=== PATIENT | male | born 1950 | race Caucasian/White ===

== ENCOUNTER 2017-10-07 13:25 | Emergency (ER) | payer SELFPAY, OTHER | END 2017-10-07 17:10 | disposition left against medical advice (07) | LOC: E/R 17:10 | DX: Z53.21 Procedure and treatment not carried out due to patient leaving prior to being seen by health care provider (principal) | CPT/HCPCS: 93005 ==

== ENCOUNTER 2018-01-13 09:45 | Emergency (ER) | payer OTHER, BC, MEDICARE | END 2018-01-13 11:43 | disposition home or self-care (01) | LOC: FTE 09:45 | DX: M25.521 Pain in right elbow (principal); Z47.89 Encounter for other orthopedic aftercare | CPT/HCPCS: 29105; 99283-25 ==

== ENCOUNTER 2018-05-10 19:58 | Emergency (ER) | payer OTHER, BC ==
[2018-05-10] MEDS: LIDOCAINE 2%/EPI MPF (SDV) 20 ML VIAL INJ (20:23)
[2018-05-10] MEDS: DIPHTH/TET/ACEL PERTUSS (ADULT) 0.5 ML VIAL IM* (20:38)
== END 2018-05-10 22:16 | disposition home or self-care (01) ==
LOC: E/R 19:58
DX: S06.0X0A Concussion without loss of consciousness, initial encounter (principal); S01.01XA Laceration without foreign body of scalp, initial encounter; F10.920 Alcohol use, unspecified with intoxication, uncomplicated; I10 Essential (primary) hypertension; E11.9 Type 2 diabetes mellitus without complications; W26.8XXA Contact with other sharp object(s), not elsewhere classified, initial encounter; Y92.410 Unspecified street and highway as the place of occurrence of the external cause; Z23 Encounter for immunization; Z79.84 Long term (current) use of oral hypoglycemic drugs
CPT/HCPCS: 12002; 70450; 72125; 90471; 90715; 99284-25